=== PATIENT | female | born 1930 | race Native Hawaiian/Other Pacific Islander ===

== ENCOUNTER 2016-04-26 09:46 | Day surgery (SDC) | payer OTHER, MEDICARE | END 2016-04-26 12:15 | disposition home or self-care (01) | LOC: OR 09:46 | PROC: 08RJ3JZ Replacement of Right Lens with Synthetic Substitute, Percutaneous Approach (ICD-10-PCS; principal; 2016-04-26) | DX: H25.811 Combined forms of age-related cataract, right eye (principal) | CPT/HCPCS: 66984; J0171; V2632 ==

== ENCOUNTER 2018-05-31 09:35 | Outpatient (CLI) | payer OTHER, MEDICARE | END 2018-05-31 19:09 | disposition home or self-care (01) | LOC: RAD 09:35 | DX: M85.89 Other specified disorders of bone density and structure, multiple sites (principal) ==

== ENCOUNTER 2021-02-01 14:58 | Emergency (ER) | payer OTHER, MEDICARE ==
[~2021-02-01] VITALS: Ht 167.6 cm; Wt 38.2 kg
[2021-02-01 15:05] VITALS: BP 131/61; TEMP 98.9
[2021-02-01] MEDS ORDERED: NEXIUM40 M1 PO (15:35)
[2021-02-01] MEDS ORDERED: BISACODYL5 M1 PO (15:36)
== END 2021-02-01 16:25 | disposition home or self-care (01) ==
LOC: ED 14:58
DX: L89.151 Pressure ulcer of sacral region, stage 1 (principal); L89.152 Pressure ulcer of sacral region, stage 2
CPT/HCPCS: 99282

== ENCOUNTER 2021-09-04 13:51 | Outpatient (CLI) | payer OTHER, MEDICARE ==
[~2021-09-04 13:51] MED LIST: BISACODYL5 M1 PO; NEXIUM40 M1 PO
[2021-09-04 14:44] LABS: PLATELET COUNT 293 K/uL (152-353)
[2021-09-04 15:04] LABS: POTASSIUM 4.5 mmol/L (3.6-5.2)
== END 2021-09-04 21:12 | disposition home or self-care (01) ==
LOC: LAB 13:51
PROVIDERS: ATTEND Internal Medicine
DX: R41.3 Other amnesia (principal); R26.9 Unspecified abnormalities of gait and mobility; M81.0 Age-related osteoporosis without current pathological fracture; R63.4 Abnormal weight loss; R53.83 Other fatigue; R06.02 Shortness of breath; Z79.899 Other long term (current) drug therapy
CPT/HCPCS: 80053; 82306; 83036; 84443; 85027